=== PATIENT | female | born 1945 | race African-American/Black ===

== ENCOUNTER → 2017-03-01 | Day surgery (SDC) | payer OTHER, MEDICARE ==
--- NOTE | 2017-03-04 19:49 | OP ---
DATE OF OPERATION: 03/01/2017 PREOPERATIVE DIAGNOSIS: Left axillary adenopathy with left breast mass, 2 o'clock, 10 cm from the nipple. POSTOPERATIVE DIAGNOSIS: Left axillary adenopathy with left breast mass, 2 o'clock, 10 cm from the nipple. PROCEDURE: Left ultrasound-guided core biopsy of left axillary node and left breast with clip placement. ANESTHESIA: Local. ATTENDING SURGEON: Radha Ramirez MD ESTIMATED BLOOD LOSS: Minimal. COMPLICATIONS: None. DESCRIPTION OF PROCEDURE: Patient was made aware of the risks and benefits of the procedure and consented. She was placed in a supine position. The left axilla was approached first. Under sterile conditions with 1% lidocaine for local anesthesia and a 13-gauge needle via inferolateral approach, was able to obtain under ultrasound guidance multiple cores which were submitted to for permanent sectioning. Under ultrasound guidance, a U-shaped clip was placed into the biopsy region. Well tolerated by the patient. Steri-Strip and a sterile bandage were applied. The left breast mass at 2 o'clock, 10 cm from the nipple was then approached. Under sterile conditions with 1% lidocaine for local anesthesia, a small aixa was made in the skin. Using a 13-gauge suction biopsy device lateral approach under ultrasound guidance, multiple cores were obtained and submitted to Pathology. Likewise, under ultrasound guidance, a U-shaped clip was placed into the biopsy region. Well tolerated by patient. Steri-Strip and a sterile bandage were applied. We will contact her with results. RADHA RAMIREZ M.D. [id number]
--- NOTE | 2017-03-05 16:02 | PATH ---
Surgical Pathology Report Patient Name: [facility]. Rec. #: [id number] /Age/Gender: 1945 (Age: 71) / F Account: [id number] Location: [facility] RADIOLOGY U Taken: 03/01/2017 Received: 03/01/2017 Reported: 03/05/2017 Physicians: Sanjana Jordan M.D. Specimen(s) Received A: LEFT AXILLARY NODE CORE BIOPSY B: LEFT BREAST 2:00, 10 CM FN CORE BIOPSY Clinical History Nonpalpable lesion Ultrasound findings: Probably benign Final Diagnosis A. LYMPH NODE, LEFT AXILLA, CORE BIOPSY: BENIGN LYMPH NODE TISSUE SHOWING REACTIVE CHANGES CONSISTENT WITH DERMATOPATHIC LYMPHADENOPATHY. B. BREAST, LEFT, 2:00, 10 CM FN, CORE BIOPSY: BENIGN BREAST TISSUE SHOWING FIBROADENOMATOID CHANGE, STROMAL FIBROSIS AND FEW CALCIFICATIONS IN ASSOCIATION WITH BENIGN GLANDULAR PARENCHYMA. Electronically Signed Elly Yang M.D. Gross Description A. Received in formalin labeled "left axilla," is a 1.8 x 1.4 x 0.3 cm aggregate of multiple rodriguez-yellow, irregular to cylindrical portions of fibroadipose tissue. The formalin is filtered and the specimen is entirely submitted in one cassette. B. Received in formalin labeled "left breast 2:00, 10cmfn," is a 1.8 x 1.1 x 0.2 cm aggregate of multiple rodriguez-yellow, irregular to cylindrical portions of fibroadipose tissue. The formalin is filtered and the specimen is entirely submitted in one cassette. Time to formalin fixation: < 1 minute Total formalin fixation time: Approximately 8 hours. /03/04/2017 [facility]03/04/2017
== END | disposition home or self-care (01) ==
LOC: FRADUS-SUR 14:01
PROVIDERS: ATTEND Surgery Surgical Oncology
PROC: 0HBU3ZX Excision of Left Breast, Percutaneous Approach, Diagnostic (ICD-10-PCS; principal; 2017-03-01)
PROC: [UNRECOGNIZED PROCEDURE] (2017-03-01)
PROC: BH47ZZZ Ultrasonography of Upper Extremity (ICD-10-PCS; 2017-03-01)
DX: N60.32 Fibrosclerosis of left breast (principal); N64.89 Other specified disorders of breast; N63.21 Unspecified lump in the left breast, upper outer quadrant; R59.0 Localized enlarged lymph nodes
CPT/HCPCS: 19083; 19084; 76942; 87899; 88305-TC; A4648